=== PATIENT | female | born 1965 | race Caucasian/White ===

== ENCOUNTER 2019-02-20 10:08 | Inpatient (IN) | payer OTHER ==
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
[2019-02-20 11:33] LABS: Appearance,Urine Clear (Clear); Bilirubin,Urine Negative (Negative); Blood,Urine Negative (Negative); Color,Urine Light Yellow; Glucose,Urine (UA) Negative (Negative); Ketones,Urine Negative (Negative); Leukocyte Esterase,Urine Negative (Negative); Nitrite,Urine Negative (Negative); Protein,Urine Negative (Negative); Specific Gravity,Urine 1.003 (1.001-1.035); Urobilinogen,Urine <2.0 mg/dL (<2.0)
[2019-02-20 11:34] LABS: Basophils # (A) 0.1 k/uL (0-0.2); Basophils % (A) 1 %; Eosinophils # (A) 0.1 k/uL (0-0.7); Eosinophils % (A) 1 %; HGB 15.3 gm/dL (11.4-16.0); Lymphocytes # (A) 2.2 k/uL (1.0-4.8); Lymphocytes % (A) 27 %; MCH 32.7 pg (25.0-35.0); MCHC 34.8 g/dL (31.0-37.0); Mean Platelet Volume 7.1; Monocytes # (A) 0.3 k/uL (0-1.0); Monocytes % (A) 4 %; Neutrophils # (A) 5.5 k/uL (1.3-7.7); Neutrophils % (A) 67 %; Platelet Count 189 k/uL (150-450); RBC 4.68 m/uL (3.80-5.40); RDW 12.9 % (11.5-15.5); WBC 8.2 k/uL (3.8-10.6)
[2019-02-20 11:44] LABS: Amphetamine Screen,Urine Not Detected (NotDetected); Barbiturate Screen,Urine Not Detected (NotDetected); Benzodiazepines Screen,Urine Not Detected (NotDetected); Cocaine Screen,Urine Not Detected (NotDetected); Methadone Screen, Urine Not Detected (NotDetected); Opiate Screen,Urine Not Detected (NotDetected); Oxycodone Screen, Urine Not Detected (NotDetected); Phencyclidine Screen,Urine Not Detected (NotDetected); Tricyclic Antidepressant,Urine Not Detected (NotDetected); Urn Cannabinoid Scrn Not Detected (NotDetected)
[2019-02-20 11:56] LABS: ALT 35 U/L (9-52); AST 25 U/L (14-36); Acetaminophen <10.0 ug/mL; African American GFR (CKD) >90 (>60 ml/min/1.73 sqM); Albumin 4.3 g/dL (3.5-5.0); Alkaline Phosphatase 107 U/L (38-126); Anion Gap 12 mmol/L; Blood Urea Nitrogen 12 mg/dL (7-17); Calcium 9.4 mg/dL (8.4-10.2); Carbon Dioxide 22 mmol/L (22-30); Chloride 112 mmol/L (98-107); Glucose 97 mg/dL (74-99); Non-African American GFR(CKD) >90 (>60 ml/min/1.73 sqM); Potassium 3.6 mmol/L (3.5-5.1); Salicylate <1.0 mg/dL; Sodium 146 mmol/L (137-145); Total Bilirubin 0.5 mg/dL (0.2-1.3); Total Protein 6.8 g/dL (6.3-8.2)
[2019-02-20 11:58] LABS: Alcohol 229 mg/dL
[2019-02-20] MEDS ORDERED: POTASSIUM CHLORIDE ER 20 MEQ TAB.ER PO STA (12:21)
[2019-02-20] MEDS ORDERED: SODIUM CHLORIDE 0.9% 500 ML 500 ML IV STA (12:22)
[2019-02-20] MEDS ORDERED: NALOXONE 0.4 MG/ML 1 ML VIAL IV PRN (12:23)
[2019-02-20] MEDS ORDERED: LORazepam 2 MG/ML INJ IV STA (13:11)
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
--- NOTE | 2019-02-20 15:03 | ED ---
Medical Decision Making - Lab Data Result diagrams: 02/20/19 11:15 02/20/19 11:15 Lab Results 02/20/19 02/20/19 02/20/19 Range/Units 10:26 11:15 11:15 WBC 8.2 (3.8-10.6) k/uL RBC 4.68 (3.80-5.40) m/uL Hgb 15.3 (11.4-16.0) gm/dL Hct 44.0 (34.0-46.0) % MCV 94.0 (80.0-100.0) fL MCH 32.7 (25.0-35.0) pg MCHC 34.8 (31.0-37.0) g/dL RDW 12.9 (11.5-15.5) % Plt Count 189 (150-450) k/uL Neutrophils % 67 % Lymphocytes % 27 % Monocytes % 4 % Eosinophils % 1 % Basophils % 1 % Neutrophils # 5.5 (1.3-7.7) k/uL Lymphocytes # 2.2 (1.0-4.8) k/uL Monocytes # 0.3 (0-1.0) k/uL Eosinophils # 0.1 (0-0.7) k/uL Basophils # 0.1 (0-0.2) k/uL Sodium 146 H (137-145) mmol/L Potassium 3.6 (3.5-5.1) mmol/L Chloride 112 H (98-107) mmol/L Carbon Dioxide 22 (22-30) mmol/L Anion Gap 12 mmol/L BUN 12 (7-17) mg/dL Creatinine 0.72 (0.52-1.04) mg/dL Est GFR (CKD-EPI)AfAm >90 (>60 ml/min/1.73 sqM) Est GFR (CKD-EPI)NonAf >90 (>60 ml/min/1.73 sqM) Glucose 97 (74-99) mg/dL Calcium 9.4 (8.4-10.2) mg/dL Magnesium (1.6-2.3) mg/dL Total Bilirubin 0.5 (0.2-1.3) mg/dL AST 25 (14-36) U/L ALT 35 (9-52) U/L Alkaline Phosphatase 107 (38-126) U/L Total Protein 6.8 (6.3-8.2) g/dL Albumin 4.3 (3.5-5.0) g/dL Urine Color Light Yellow Urine Appearance Clear (Clear) Urine pH 6.0 (5.0-8.0) Ur Specific [place] 1.003 (1.001-1.035) Urine Protein Negative (Negative) Urine Glucose (UA) Negative (Negative) Urine Ketones Negative (Negative) Urine Blood Negative (Negative) Urine Nitrite Negative (Negative) Urine Bilirubin Negative (Negative) Urine Urobilinogen <2.0 (<2.0) mg/dL Ur Leukocyte Esterase Negative (Negative) Salicylates <1.0 mg/dL Urine Opiates Screen Not Detected (NotDetected) Ur Oxycodone Screen Not Detected (NotDetected) Urine Methadone Screen Not Detected (NotDetected) Ur Propoxyphene Screen Not Detected (NotDetected) Acetaminophen <10.0 ug/mL Ur Barbiturates Screen Not Detected (NotDetected) U Tricyclic Antidepress Not Detected (NotDetected) Ur Phencyclidine Scrn Not Detected (NotDetected) Ur Amphetamines Screen Not Detected (NotDetected) U Methamphetamines Scrn Not Detected (NotDetected) U Benzodiazepines Scrn Not Detected (NotDetected) Urine Cocaine Screen Not Detected (NotDetected) U Marijuana (THC) Screen Not Detected (NotDetected) Serum Alcohol 229 H* mg/dL 02/20/19 Range/Units 11:15 WBC (3.8-10.6) k/uL RBC (3.80-5.40) m/uL Hgb (11.4-16.0) gm/dL Hct (34.0-46.0) % MCV (80.0-100.0) fL MCH (25.0-35.0) pg MCHC (31.0-37.0) g/dL RDW (11.5-15.5) % Plt Count (150-450) k/uL Neutrophils % % Lymphocytes % % Monocytes % % Eosinophils % % Basophils % % Neutrophils # (1.3-7.7) k/uL Lymphocytes # (1.0-4.8) k/uL Monocytes # (0-1.0) k/uL Eosinophils # (0-0.7) k/uL Basophils # (0-0.2) k/uL Sodium (137-145) mmol/L Potassium (3.5-5.1) mmol/L Chloride (98-107) mmol/L Carbon Dioxide (22-30) mmol/L Anion Gap mmol/L BUN (7-17) mg/dL Creatinine (0.52-1.04) mg/dL Est GFR (CKD-EPI)AfAm (>60 ml/min/1.73 sqM) Est GFR (CKD-EPI)NonAf (>60 ml/min/1.73 sqM) Glucose (74-99) mg/dL Calcium (8.4-10.2) mg/dL Magnesium 2.3 (1.6-2.3) mg/dL Total Bilirubin (0.2-1.3) mg/dL AST (14-36) U/L ALT (9-52) U/L Alkaline Phosphatase (38-126) U/L Total Protein (6.3-8.2) g/dL Albumin (3.5-5.0) g/dL Urine Color Urine Appearance (Clear) Urine pH (5.0-8.0) Ur Specific [place] (1.001-1.035) Urine Protein (Negative) Urine Glucose (UA) (Negative) Urine Ketones (Negative) Urine Blood (Negative) Urine Nitrite (Negative) Urine Bilirubin (Negative) Urine Urobilinogen (<2.0) mg/dL Ur Leukocyte Esterase (Negative) Salicylates mg/dL Urine Opiates Screen (NotDetected) Ur Oxycodone Screen (NotDetected) Urine Methadone Screen (NotDetected) Ur Propoxyphene Screen (NotDetected) Acetaminophen ug/mL Ur Barbiturates Screen (NotDetected) U Tricyclic Antidepress (NotDetected) Ur Phencyclidine Scrn (NotDetected) Ur Amphetamines Screen (NotDetected) U Methamphetamines Scrn (NotDetected) U Benzodiazepines Scrn (NotDetected) Urine Cocaine Screen (NotDetected) U Marijuana (THC) Screen (NotDetected) Serum Alcohol mg/dL Disposition Clinical Impression: Overdose, Suicidal intent Disposition: ADMITTED IP TO THIS [facility] Condition: Serious Procedures - Restraint - Face to Face Restraint Occurrence 1 Patient's Immediate Situation: Endangers self safety, Endangers others' safety, Violent behavior Patient's Reaction to the Intervention: Uncooperative, Angry, Hostile, Belligerent, Aggressive, Combative, Resistive to care Patient's Medical & Behavioral Condition: Awake, Alert, Agitated Need to Continue or Terminate Restraint or Seclusion: Continue Face to Face Eval of Restraint Date: 02/20/19 Face to Face Eval of Restraint Time: 13:35
[2019-02-20] MEDS: POTASSIUM CHLORIDE 10 MEQ in WATER FOR INJECTION 1 100ML.BAG IVPB SCH (15:21)
--- NOTE | 2019-02-20 15:21 | XR ---
EXAMINATION TYPE: XR chest 1V DATE OF EXAM: 02/20/2019 COMPARISON: NONE HISTORY: Intentional overdose TECHNIQUE: Single frontal view of the chest is obtained. FINDINGS: Cardiomediastinal silhouette is within normal limits of size. There are streaky by basilar opacity; l yazmin apices are clear. No sizable pleural effusion or pneumothorax. Osseous structures are intact. IMPRESSION: Streak-like by basilar opacities are nonspecific but may represent atelectasis or pneumo nitis.
[2019-02-20] MEDS ORDERED: LORazepam 2 MG/ML INJ IV PRN ×3 (16:33)
[2019-02-20] MEDS: THIAMINE 100 MG TAB PO SCH (16:48)
[2019-02-20] MEDS: SODIUM CHLORIDE 0.9% 1,000 ML IV SCH (18:03)
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
[2019-02-21] MEDS: THIAMINE 100 MG TAB PO SCH (06:38)
[2019-02-21] MEDS: SODIUM CHLORIDE 0.9% 1,000 ML IV SCH ×2 (08:32→08:42)
[2019-02-21] MEDS: POTASSIUM CHLORIDE 10 MEQ in WATER FOR INJECTION 1 100ML.BAG IVPB SCH (08:32)
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
[2019-02-21 09:37] VITALS: BP 128/60; PULSE 77; RESP 18; TEMP 97.9
[2019-02-21 10:21] LABS: ALT 28 U/L (9-52); AST 21 U/L (14-36); African American GFR (CKD) >90 (>60 ml/min/1.73 sqM); Alcohol <10 mg/dL; Alkaline Phosphatase 91 U/L (38-126); Anion Gap 7 mmol/L; Blood Urea Nitrogen 19 mg/dL (7-17); Calcium 9.6 mg/dL (8.4-10.2); Carbon Dioxide 24 mmol/L (22-30); Chloride 111 mmol/L (98-107); Glucose 98 mg/dL (74-99); Non-African American GFR(CKD) >90 (>60 ml/min/1.73 sqM); Potassium 4.1 mmol/L (3.5-5.1); Sodium 142 mmol/L (137-145); Total Bilirubin 1.2 mg/dL (0.2-1.3); Total Protein 6.3 g/dL (6.3-8.2)
--- NOTE | 2019-02-21 12:38 | P.CN ---
Psychiatric Consult - . Consult date: 02/21/19 Consult:: 02/21/19 12:29 IDENTIFYING DATA: 53-year-old female patient HPI: Patient admitted to the medical floor clad [facility] status post concern of overdose and alcohol intoxication. Per chart history there was a co ncern OVERDOSE of tramadol. Per chart history the patient was combative in the ER attempted to leave, there was a petition done and she was placed in soft restraints. Her alcohol level was found to be 229. Patient relays that she got tired with her Friday morning in follow-up with him verbally and then took it out on herself by taking two NyQuil and drinking alcohol. She states that she wanted to go to sleep was tired and exhausted and hadn't been sleeping well lately. Says she doesn't remember ever saying that she took tramadol. Her is present during the evaluation and states that he called 911 because he was scared of how she was acting. Patient relays that she wasn't thinking of suicide at all. She says that if she were going to do something stupid she would've done it by now with some of the stressors that she's been through. She relays that she is not about killing herself. Relates she has been dealing with any thoughts of suicide. She denies any significant depression. It is relieved that the bottle of tramadol with from a year ago and misses her . He relates he is not concerned that she took any tramadol. He relates that he is not concerned about her being able to go home. PAST PSYCHIATRIC HISTORY: She denies. She then reports that she was on Effexor for a little while but it affected her heart rate. She has done some counseling with her kids in the past. PMH: Per chart history coronary artery disease ALLERGIES: No known ALLERGIES MEDICATIONS: Ativan when necessary, Narcan when necessary, vitamin B1 CHEMICAL DEPENDENCY HISTORY: Patient reports that she drinks alcohol maybe once a week or once every couple weeks. She does not desire any inpatient rehab treatment. FAMILY PSYCHIATRIC HISTORY: Denies FAMILY CHEMICAL DEPENDENCY HISTORY: Not known at this time SOCIAL HISTORY: She has been currently for 23 years now. 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 She has 4 children and 8 grandchildren. She plans on going to her next work shift on Friday. MENTAL STATUS EXAM: She is alert and cooperative with the interview. Speech is fluent, not rapid or pressured. Her mood is described as "fine, want to go ho me." She denies any current thoughts of harm to self or others. She reports feeling safe to go home. She denies any history of hallucinations. She does not show any agitation. Cognitively she is very grossly intact. IMPRESSIONS: Adjustment disorder unspecified; rule out alcohol use disorder PLAN: Recommend patient follow up as an outpatient. Will provide referrals for mental health and substance abuse treatment. I do not see criteria for inpatient psychiatric hospitalization at this time. We discussed avoiding alcohol use. Can discontinue one-to-one sitter at this time.
--- NOTE | 2019-02-21 12:49 | P.CN ---
Psychiatric Consult - . Consult date: 02/21/19 Consult:: 02/21/19 12:49 Patient also discussed the option of following up with counseling with [facility] through her work which we discussed with ongoing referral if needed through [facility]. Original Note: Psychiatric Consult - . Consult date: 02/21/19 Consult:: 02/21/19 12:29 IDENTIFYING DATA: 53-year-old female patient HPI: Patient admitted to the medical floor clad [facility] status post concern of overdose and alcohol intoxication. Per chart history there was a concern OVERDOSE of tramadol. Per chart history the patient was combative in the ER attempted to leave, there was a petition done and she was placed in soft restraints. Her alcohol level was found to be 229. Patient relays that she got tired with her Friday morning in follow-up with him verbally and then took it out on herself by taking two NyQuil and drinking alcohol. She states that she wanted to go to sleep was tired and exhausted and hadn't been sleeping well lately. Says she doesn't remember ever saying that she took tramadol. Her is present during the evaluation and states that he called 911 because he was scared of how she was acting. Patient relays that she wasn't thinking of suicide at all. She says that if she were going to do something stupid she would've done it by now with some of the stressors that she's been through. She relays that she is not about killing herself. Relates she has been dealing with any thoughts of suicide. She denies any significant depression. It is relieved that the bottle of tramadol with from a year ago and misses her . He relates he is not concerned that she took any tramadol. He relates that he is not concerned about her being able to go home. PAST PSYCHIATRIC HISTORY: She denies. She then reports that she was on Effexor for a little while but it affected her heart rate. She has done some counseling with her kids in the past. PMH: Per chart history coronary artery disease ALLERGIES: No known ALLERGIES MEDICATIONS: Ativan when necessary, Narcan when necessary, vitamin B1 CHEMICAL DEPENDENCY HISTORY: Patient reports that she drinks alcohol maybe once a week or once every couple weeks. She does not desire any inpatient rehab treatment. FAMILY PSYCHIATRIC HISTORY: Denies FAMILY CHEMICAL DEPENDENCY HISTORY: Not known at this time SOCIAL HISTORY: She has been currently for 23 years now. 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 She has 4 children and 8 grandchildren. She plans on going to her next work shift on Friday. MENTAL STATUS EXAM: She is alert and cooperative with the interview. Speech is fluent, not rapid or pressured. Her mood is described as "fine, want to go home." She denies any current thoughts of harm to self or others. She reports feeling safe to go home. She denies any history of hallucinations. She does not show any agitation. Cognitively she is very grossly intact. IMPRESSIONS: Adjustment disorder unspecified; rule out alcohol use disorder PLAN: Recommend patient follow up as an outpatient. Will provide referrals for mental health and substance abuse treatment. I do not see criteria for inpatient psychiatric hospitalization at this time. We discussed avoiding alcohol use. Can discontinue one-to-one sitter at this time.
[2019-02-22 09:35] LABS: Urine Alcohol Negative (Negative); Urine Barbiturate Negative (Negative); Urine Cocaine Negative (Negative); Urine Methadone Negative (Negative); Urine Opiates Negative (Negative); Urine Phencyclidine Negative (Negative)
== END 2019-02-21 12:55 | disposition home or self-care (01) | DRG 897 ==
LOC: EC 10:08 → 3SCARD 13:31
PROVIDERS: ADMIT Family Medicine; ATTEND Family Medicine
DX: F10.129 Alcohol abuse with intoxication, unspecified (principal); F17.200 Nicotine dependence, unspecified, uncomplicated; I25.10 Atherosclerotic heart disease of native coronary artery without angina pectoris; F32.9 Major depressive disorder, single episode, unspecified; F41.9 Anxiety disorder, unspecified; R94.31 Abnormal electrocardiogram [ECG] [EKG]; Z78.1 Physical restraint status
CPT/HCPCS: 36415; 71045; 80053; 80306; 80320; 80329; 81003; 82075; 83520; 83735; 85025; 93005; 96374; 99285